=== PATIENT | male | born 1960 | race African-American/Black ===

== ENCOUNTER 2023-10-27 19:31 | Emergency (ER) | payer OTHER ==
[2023-10-27] MEDS ORDERED: Ketorolac Tromethamine 30 MG (1 mL) VIAL ONE (20:52)
== END 2023-10-27 21:04 ==
LOC: ERS 19:31
DX: M25.462 Effusion, left knee (principal); I10 Essential (primary) hypertension; E78.00 Pure hypercholesterolemia, unspecified
CPT/HCPCS: 96372; J1885